=== PATIENT | male | born 1940 | race Caucasian/White ===

== ENCOUNTER 2018-03-31 16:29 | Inpatient (IN) | payer MEDICARE ==
[~2018-03-31] VITALS: Ht 177.8 cm; Wt 101.2 kg
--- NOTE | ~2018-03-31 | MORECARE ---
CASE MANAGEMENT DISCHARGE SUMMARY PATIENT: DENIS ELAINE UNIT: [id number] ADM DATE: 03/31/18 AGE: 78 : 40 SEX: M ROOM/BED: D.3757 AUTHOR: CARLTONDOC PHYSICIAN: REFERRING PHYSICIAN: LOU JACOBSEN MD DATE OF SERVICE: 04/08/18 Discharge Plan Patient Name: DENIS ELAINE Facility: [facility]:[place] : 1940 Planned Disposition: Home Anticipated Discharge Date: 04/07/18 Discharge Date: 04/07/2018 Expected LOS: 7 Initial Reviewer: [id number] Initial Review Date: 04/01/2018 Generated: 04/08/18 10:26 am Comments DCP- Discharge Planning Updated by [email or web address]: Thomas Estrada on 04/06/18 3:[address] Patient Name: DENIS ELAINE Admission Status: ER Accout number: [id number] Admission Date: 03-31-2018 : 1940 Admission Diagnosis:UNSPECIFIED ATRIAL FIBRILLATION Attending: LOU JACOBSEN Current LOS: 6 Anticipated DC Date: 04-07-2018 Planned Disposition: Home Primary Insurance: MEDICARE A & B Discharge Planning Comments: CM MET WITH PT AND SPOUSE IN ROOM TO DISCUSS DISCHARGE PLANNING AND NEEDS. DENIS ELAINE provided verbal consent to discuss current and ongoing needs with/in the presence of: SPOUSE, MAYELIN. PT REPORTS LIVING AT HOME INDEPENDENTLY WITH SPOUSE. PT HAS CANE, LIFT CHAIR, ROLLING WALKER AND WALKER FROM [place]. PT HAS NO OUTSIDE SERVICES ASSISTING IN THE HOME. CM DISCUSSED AVAILABILITY OF HOME HEALTH, REHAB SERVICES AND MEDICAL EQUIPMENT. PT DENIES DISCHARGE NEEDS, REPORTS HIS WILL PICK HIMUP FOR DISCHARGE HOME. IMPORTANT MESSAGE FROM MEDICARE PROVIDED AND EXPLAINED. PT REPORTS NOT HAVING CURRENT PRIMARY DOCTOR ALL THE DOCTORS LEFT THE [facility] IN [place], BUT THAT IS WHO PROVIDES PRESCRIPTIONS FOR MAINTENANCE MEDICATIONS. PT PLANS TO DISCHARGE HOME WITH FAMILY, DENIES DISCHARGE NEEDS AT THIS TIME. FAMILY TO TRANSPORT HOME. CM TO FOLLOW AND ASSIST IF NEEDED. Automobile Seat Cover Installer: Thomas Estrada DCPIA - Discharge Planning Initial Assessment Updated by [email or web address]: Thomas Estrada on 04/06/18 4:31 pm * Is the patient Alert and Oriented? Yes * How many steps to enter\exit or inside your home? RAMP * PCP [facility] * [facility] [place] * Preadmission Environment Home with Family * ADLs Independent * Equipment Cane Other Rolling Walker Walker * Other Equipment LIFT CHAIR [facility] [employer] [facility] * List name and contact numbers for known caregivers / representatives who currently or will assist patient after discharge: MAYELIN ELAINE, SPOUSE, * Verbal permission to speak to the caregivers and representatives has been obtained from the patient. Yes * Community resources currently utilized None * Please name any agencies selected above. NONE * Additional services required to return to the preadmission environment? No * Can the patient safely return to the preadmission environment? Yes * Has this patient been hospitalized within the prior 30 days at any hospital? No Coverage Notice Reviewer: [id number] Rodriguez Estrada Notice Issued Date-Time: 04/06/2018 16:15 Notice Type: IM Discharge Notice Notice Delivered To: Patient Relationship to Patient: Barytes Grinder Name: Delivery Method: HAND - Hand Delivered Shantell Days: Prior Verbal Notification: Recipient Understood Notice: Yes Recipient Signature: Yes Med Rec Note Co-signed by Attending: Coverage Notice Comment: Last DP export: 04/06/18 3:46 Patient Name: DENIS ELAINE Page [id number] at 0926 All edits/amendments must be made on the electronic document DICTATION DATE: 04/08/18925 ACID TENDER: DERRICK 04/08/18925 RPT#: [id number] DC DATE:04/07/18 STATUS: DIS IN [facility] [address] [place] [address] END OF REPORT
--- NOTE | ~2018-03-31 | OP ---
PATIENT NAME: DENIS ELAINE MEDICAL RECORD: [id number] :40 LOCATION:D.[place]osal[place] D.2125 ADMISSION DATE:03/31/18 SURGEON: FOREST PACHECO MD DATE OF OPERATION: 04/06/2018 PREOPERATIVE DIAGNOSES: 1. Gallstones. 2. Nonalcoholic steatohepatitis. 3. Atrial fibrillation. 4. Hypertension. 5. Diabetes mellitus. 6. Resolved small-bowel obstruction. 7. Resolved pancreatitis. POSTOPERATIVE DIAGNOSES: 1. Gallstones. 2. Nonalcoholic steatohepatitis. 3. Atrial fibrillation. 4. Hypertension. 5. Diabetes mellitus. 6. Resolved small-bowel obstruction. 7. Resolved pancreatitis. PROCEDURE: Laparoscopic cholecystectomy. SURGEON: Forest Pacheco MD REPORT OF PROCEDURE: The patient's abdomen was prepped and draped in sterile fashion. A cutdown was made on the superior aspect of the umbilicus, 0 Vicryls were placed in the fascia bilaterally and the fascia was incised with 15-blade. I then bluntly entered the peritoneal cavity and placed a 12-mm Nirali port. Under direct visualization, a 5 mm trocar was placed in the epigastrium and 2 more 5-mm trocars were placed in the right subcostal region. The gallbladder was grasped and elevated, it showed some chronic inflammatory changes with maybe some mild acute inflammation, it was difficult to grasp, so we had to aspirate the gallbladder and there was removal of some bilious fluid. At this point, we elevated the gallbladder, we were able to dissect out the cystic artery and cystic duct. This was clamped proximally and distally and ligated in standard fashion. The gallbladder was then taken off the liver bed using electrocautery and placed into an EndoCatch bag. The liver bed was treated with electrocautery to assure there is no sign of any further bleeding. At this point, the ports and insufflation were then removed and the gallbladder was taken out through the umbilicus. The umbilical fascia was closed with interrupted 0 Vicryls times 3. The wounds were then irrigated out with normal saline and infused with 10 mL of 0.25% Marcaine with epinephrine. The skin incisions were all closed with subcutaneous 5-0 Monocryl and dressed appropriately. COMPLICATIONS: None. CONDITION: Stable. ANESTHESIA: General endotracheal and local. BLOOD LOSS: 50 mL. OPERATIVE REPORT [id number] DENIS ELAINE TRANSINT:[id number] Voice Confirmation ID: [id number] DOCUMENT ID: [id number] FOREST PACHECO MD at 0916 CC: [id number] DICTATION DATE: 04/06/18 1500 REHAB THERAPY MANAGER: 04/06/18 1647 DIS IN 04/07/18 [facility] [address] [place] [id number]
--- NOTE | ~2018-03-31 | MORECARE ---
CASE MANAGEMENT DISCHARGE SUMMARY PATIENT: DENIS ELAINE UNIT: [id number] ADM DATE: 03/31/18 AGE: 78 : 40 SEX: M ROOM/BED: D.5964 AUTHOR: CARLTON,DOC PHYSICIAN: REFERRING PHYSICIAN: LOU JACOBSEN MD DATE OF SERVICE: 04/06/18 Discharge Plan Patient Name: DENIS ELAINE Facility: [facility]:[place] : 1940 Planned Disposition: Home Anticipated Discharge Date: 04/07/18 Discharge Date: Expected LOS: 7 Initial Reviewer: [id number] Initial Review Date: 04/01/2018 Generated: 04/06/18 5:46 pm Comments DCP- Discharge Planning Updated by [id number]: Thomas Estrada on 04/06/18 3:[address] Patient Name: DENIS ELAINE Admission Status: ER Accout number: [id number] Admission Date: 03-31-2018 : 1940 Admission Diagnosis:UNSPECIFIED ATRIAL FIBRILLATION Attending: LOU JACOBSEN Current LOS: 6 Anticipated DC Date: 04-07-2018 Planned Disposition: Home Primary Insurance: MEDICARE A & B Discharge Planning Comments: CM MET WITH PT AND SPOUSE IN ROOM TO DISCUSS DISCHARGE PLANNING AND NEEDS. DENIS ELAINE provided verbal consent to discuss current and ongoing needs with/in the presence of: SPOUSE, MAYELIN. PT REPORTS LIVING AT HOME INDEPENDENTLY WITH SPOUSE. PT HAS CANE, LIFT CHAIR, ROLLING WALKER AND WALKER FROM [place]. PT HAS NO OUTSIDE SERVICES ASSISTING IN THE HOME. CM DISCUSSED AVAILABILITY OF HOME HEALTH, REHAB SERVICES AND MEDICAL EQUIPMENT. PT DENIES DISCHARGE NEEDS, REPORTS HIS WILL PICK HIMUP FOR DISCHARGE HOME. IMPORTANT MESSAGE FROM MEDICARE PROVIDED AND EXPLAINED. PT REPORTS NOT HAVING CURRENT PRIMARY DOCTOR ALL THE DOCTORS LEFT THE [facility] [place], BUT THAT IS WHO PROVIDES PRESCRIPTIONS FOR MAINTENANCE MEDICATIONS. PT PLANS TO DISCHARGE HOME WITH FAMILY, DENIES DISCHARGE NEEDS AT THIS TIME. FAMILY TO TRANSPORT HOME. CM TO FOLLOW AND ASSIST IF NEEDED. Plant Operations Worker: Thomas Estrada DCPIA - Discharge Planning Initial Assessment Updated by [email or web address]: Thomas Estrada on 04/06/18 4:31 pm * Is the patient Alert and Oriented? Yes * How many steps to enter\exit or inside your home? RAMP * [facility] * [facility] [place] * Preadmission Environment Home with Family * ADLs Independent * Equipment Cane Other Rolling Walker Walker * Other Equipment LIFT CHAIR [facility] [employer] [employer] PROVID[facility] * List name and contact numbers for known caregivers / representatives who currently or will assist patient after discharge: MAYELIN ELAINE, SPOUSE, * Verbal permission to speak to the caregivers and representatives has been obtained from the patient. Yes * Community resources currently utilized None * Please name any agencies selected above. NONE * Additional services required to return to the preadmission environment? No * Can the patient safely return to the preadmission environment? Yes * Has this patient been hospitalized within the prior 30 days at any hospital? No Coverage Notice Reviewer: [id number] Rodriguez Estrada Notice Issued Date-Time: 04/06/2018 16:15 Notice Type: IM Discharge Notice Notice Delivered To: Patient Relationship to Patient: Processing Archivist Name: Delivery Method: HAND - Hand Delivered Shantell Days: Prior Verbal Notification: Recipient Understood Notice: Yes Recipient Signature: Yes Med Rec Note Co-signed by Attending: Coverage Notice Comment: Last DP export: 04/06/18 3:33 Patient Name: DENIS ELAINE Page [phone] at 1646 All edits/amendments must be made on the electronic document DICTATION DATE: 04/06/181645 INTERNET PROJECT MANAGER: DERRICK 04/06/181645 RPT#: [id number] DC DATE: STATUS: ADM IN [facility] [address] [place] [address] END OF REPORT
--- NOTE | ~2018-03-31 | MORECARE ---
CASE MANAGEMENT DISCHARGE SUMMARY PATIENT: DENIS ELAINE UNIT: [id number] ADM DATE: 03/31/18 AGE: 78 : 40 SEX: M ROOM/BED: D.0071 AUTHOR: TANIA VINCENT PHYSICIAN: REFERRING PHYSICIAN: LOU JACOBSEN MD DATE OF SERVICE: 04/06/18 Discharge Plan Patient Name: DENIS ELAINE Facility: [facility]:[place] : 1940 Planned Disposition: Home Anticipated Discharge Date: 04/07/18 Discharge Date: Expected LOS: 7 Initial Reviewer: [id number] Initial Review Date: 04/01/2018 Generated: 04/06/18 5:33 pm DCPIA - Discharge Planning Initial Assessment Updated by [id number]: Thomas Estrada on 04/06/18 4:31 pm * Is the patient Alert and Oriented? Yes * How many steps to enter\exit or inside your home? RAMP * PCP [facility] * [facility] [place] * Preadmission Environment Home with Family * ADLs Independent * Equipment Cane Other Rolling Walker Walker * Other Equipment LIFT CHAIR [place] [employer]QUIPMENT PROVIDER * List name and contact numbers for known caregivers / representatives who currently or will assist patient after discharge: MAYELIN ELAINE, SPOUSE, * Verbal permission to speak to the caregivers and representatives has been obtained from the patient. Yes * Community resources currently utilized None * Please name any agencies selected above. NONE * Additional services required to return to the preadmission environment? No * Can the patient safely return to the preadmission environment? Yes * Has this patient been hospitalized within the prior 30 days at any hospital? No Coverage Notice Reviewer: [id number] - Thomas Estrada Notice Issued Date-Time: 04/06/2018 16:15 Notice Type: IM Discharge Notice Notice Delivered To: Patient Relationship to Patient: Post Office Clerk Name: Delivery Method: HAND - Hand Delivered Shantell Days: Prior Verbal Notification: Recipient Understood Notice: Yes Recipient Signature: Yes Med Rec Note Co-signed by Attending: Coverage Notice Comment: Patient Name: DENIS ELAINE Page [phone] at 1633 All edits/amendments must be made on the electronic document DICTATION DATE: 04/06/181632 SPECIALTIES OPERATOR: DERRICK 04/06/181632 RPT#: [id number] [place] DATE: STATUS: ADM IN [facility] [address] [place] [address] END OF REPORT
--- NOTE | ~2018-03-31 | EC ---
PATIENT:DENIS ELAINE DATE OF SERVICE: 03/31/18 SEX: M MEDICAL RECORD: [id number] DATE OF : 40 LOCATION:D. D.212 AGE OF PATIENT: 78 ADMISSION DATE: 03/31/18 REFERRING PHYSICIAN: INTERPRETING PHYSICIAN: PEACE BOONE MD ECHOCARDIOGRAM REPORT ECHO CHARGES 4 ECHO COMPLETE Date: 04/01/18 CLINICAL DIAGNOSIS: AFIB ECHOCARDIOGRAPHIC MEASUREMENTS (adult normal given) AC root (d.<3.7cm) 3.4 cm LV Septum d (<1.2 cm> 1.1 cm Valve Excursion 1.1 cm LV Septum (systole) 1.2 cm Left Atria (s.<4.0cm> 4.1 cm LVPW d(<1.2cm) 1.0 cm RV (d.<2.3cm) 2.1 cm LVPW (sytole) 1.5 cm LV diastole(<5.6CM) 4.2 cm MV E-F(>70mm/sec) cm LV systole 3.3 cm LVOT Diameter 1.6 cm MV exc.(>10mm) cm Est.ejection fraction (50-75%) % DOPPLER: LVIT cm/sec A 38 cm/sec E 76 cm/sec LA cm/sec RVSP 17.9 mmHg LVOT 106 cm/sec AOP1/2T m/s Asc. Ao 167 cm/sec RVOT 94 cm/sec RA cm/sec PA 99 cm/sec AV Gradient Peak 11.2 mmHg AV Mean 6.4 mmHg AV Area 1.3 cm MV Gradient Peak 3.7 mmHg MV Mean 2.0 mmHg MV Area cm COMMENTS: Pipefitter: Erickson HART On Site Nurse: 1 Dr. Boone TAPE# PACS Pericardial Effusion N DATE OF SERVICE: 04/01/2018 FINDINGS: 1. Left ventricular chamber size is within normal limits. Left ventricular systolic function is normal. Overall ejection fraction is estimated at 60%. 2. Left atrium is mildly dilated at 4.1 cm. Right atrium and right ventricle chamber sizes are within normal limit. 3. Valvular structures have normal structure and motion. 4. Doppler interrogation only reveals trace tricuspid regurgitation. No other valvular insufficiency or stenosis. ECHOCARDIOGRAM REPORT [id number] DENIS ELAINE Taylor 5. No evidence of pericardial effusion or left ventricular thrombus. TRANSINT:[id number] Voice Confirmation ID: [id number] DOCUMENT ID: [id number] PEACE BOONE MD at 1914 CC: [id number] DICTATION DATE: 04/01/18 1630 VICE PRESIDENT AND PORTFOLIO MANAGER: 04/01/18 1806 ADM IN [facility] [address] [place] [address]
[2018-03-31 17:01] LABS: BASOPHILS 0.3 % (0-2); EOSINOPHILS 1.4 % (0-7); HEMATOCRIT 49.2 % (42.0-54.0); HEMOGLOBIN 17.6 g/dL (13.5-17.5); IMMATURE GRANULOCYTES 0.3 % (0-5); MCH 32.4 pg (26.0-34.0); MCHC 35.8 g/dL (31.0-37.0); MCV 90.6 fL (80.0-100.0); MEAN PLATELET VOLUME 13.8 fL (7.4-10.4); MONOCYTES 11.8 % (2-11); NEUTROPHILS 70.2 % (40-80); RBC 5.43 10x6/uL (4.20-6.10); RDW 13.4 % (11.5-14.5)
[2018-03-31 17:24] LABS: PLATELET COUNT 168 10x3/uL (130-400)
[2018-03-31 17:40] LABS: ALBUMIN 3.4 g/dL (3.4-5.0); ALKALINE PHOSPHATASE 77 U/L (46-116); ALT (SGPT) 36 U/L (10-68); AMYLASE - SERUM 81 U/L (25-115); BILIRUBIN - TOTAL 1.13 mg/dL (0.2-1.3); CALCIUM 9.9 mg/dL (8.5-10.1); CARBON DIOXIDE 30.7 mmol/L (21.0-32.0); CHLORIDE - SERUM 91 mmol/L (98-107); CREATININE - SERUM 1.4 mg/dL (0.6-1.3); LIPASE 543 U/L (73-393); POTASSIUM - SERUM 4.6 mmol/L (3.5-5.1); PROTEIN - SERUM 8.1 g/dL (6.4-8.2); SODIUM 132 mmol/L (136-145); UREA NITROGEN 51 mg/dL (7-18); eGFR NON AFRICAN AMERICAN 52 mL/min (90-120)
[2018-03-31 17:42] LABS: CALC OSMOLALITY 298 mosm/kg (275-300); GLUCOSE 460 mg/dL (74-106); TROPONIN-I < 0.017 ng/mL (0.000-0.060)
[2018-03-31 18:52] LABS: APPEARANCE CLEAR (CLEAR); COLOR YELLOW (YELLOW); GLUCOSE 1000 mg/dL (NEGATIVE); NITRITE NEGATIVE (NEGATIVE); PROTEIN TRACE mg/dL (NEGATIVE); SPECIFIC GRAVITY 1.015 (1.005-1.020)
[2018-03-31 18:53] LABS: BILIRUBIN NEGATIVE (NEGATIVE); KETONE SMALL mg/dL (NEGATIVE); UROBILINOGEN NORMAL (NORMAL)
[2018-03-31 19:15] VITALS: BP 147/77
[2018-03-31 20:30] VITALS: BP 149/70
[2018-03-31 20:45] VITALS: BP 142/65
[2018-03-31 21:30] VITALS: BP 146/62
[2018-03-31 22:10] VITALS: BP 133/51
[2018-03-31 23:16] VITALS: BP 125/46
[2018-04-01] MEDS ORDERED: CO Q-10100 MG PO (00:05)
[2018-04-01] MEDS ORDERED: ONGLYZA5 MG PO (00:05)
[2018-04-01] MEDS ORDERED: FLAXSEED OIL1000 MG PO (00:07)
[2018-04-01] MEDS ORDERED: REMERON15 MG PO (00:08)
[2018-04-01] MEDS ORDERED: VITAMIN B-6100 MG PO (00:09)
[2018-04-01] MEDS ORDERED: VITAMIN B-12100 MCG PO (00:09)
[2018-04-01] MEDS ORDERED: FLOMAX0.4 MG PO (00:23)
[2018-04-01 01:10] VITALS: BP 138/61
[2018-04-01 06:06] VITALS: BP 131/55
[2018-04-01 06:52] LABS: BASOPHILS 0.4 % (0-2); EOSINOPHILS 2.6 % (0-7); HEMATOCRIT 41.5 % (42.0-54.0); HEMOGLOBIN 14.5 g/dL (13.5-17.5); IMMATURE GRANULOCYTES 0.1 % (0-5); LYMPHOCYTES 23.3 % (15-50); MCH 31.7 pg (26.0-34.0); MCHC 34.9 g/dL (31.0-37.0); MCV 90.8 fL (80.0-100.0); MEAN PLATELET VOLUME 13.5 fL (7.4-10.4); MONOCYTES 12.4 % (2-11); NEUTROPHILS 61.2 % (40-80); RBC 4.57 10x6/uL (4.20-6.10); RDW 13.4 % (11.5-14.5)
[2018-04-01 06:54] LABS: PLATELET COUNT 117 10x3/uL (130-400)
[2018-04-01 07:26] LABS: ALKALINE PHOSPHATASE 54 U/L (46-116); BILIRUBIN - TOTAL 0.75 mg/dL (0.2-1.3); CALCIUM 8.3 mg/dL (8.5-10.1); CARBON DIOXIDE 29.7 mmol/L (21.0-32.0); CHLORIDE - SERUM 101 mmol/L (98-107); SODIUM 137 mmol/L (136-145)
[2018-04-01 07:52] LABS: ALBUMIN 2.4 g/dL (3.4-5.0); ALT (SGPT) 26 U/L (10-68); CALC OSMOLALITY 291 mosm/kg (275-300); GLUCOSE 286 mg/dL (74-106); POTASSIUM - SERUM 3.8 mmol/L (3.5-5.1); UREA NITROGEN 36 mg/dL (7-18); eGFR NON AFRICAN AMERICAN 77 mL/min (90-120)
[2018-04-01 08:14] VITALS: BP 140/56
[2018-04-01 11:52] VITALS: BP 146/53
[2018-04-01 13:29] VITALS: BMI 28.9
[2018-04-01 15:03] VITALS: BP 145/58
[2018-04-01 16:45] LABS: ALBUMIN 2.6 g/dL (3.4-5.0); BILIRUBIN - DIRECT 0.31 mg/dL (0.00-0.30); BILIRUBIN - INDIRECT 0.54 mg/dL (0.00-1.00); BILIRUBIN - TOTAL 0.85 mg/dL (0.2-1.3); PROTEIN - SERUM 6.4 g/dL (6.4-8.2)
[2018-04-01 18:37] LABS: LIPASE 137 U/L (73-393)
[2018-04-01 18:39] LABS: AMYLASE - SERUM 31 U/L (25-115)
[2018-04-01 20:00] VITALS: BP 136/56
[2018-04-02] VITALS: BP 138/48
[2018-04-02 05:40] LABS: BASOPHILS 0.3 % (0-2); HEMOGLOBIN 13.3 g/dL (13.5-17.5); IMMATURE GRANULOCYTES 0.1 % (0-5); MCH 31.6 pg (26.0-34.0); MCV 90.3 fL (80.0-100.0); MEAN PLATELET VOLUME 13.1 fL (7.4-10.4); MONOCYTES 14.6 % (2-11); PLATELET COUNT 112 10x3/uL (130-400); RBC 4.21 10x6/uL (4.20-6.10); RDW 13.4 % (11.5-14.5); WBC 7.1 10x3/uL (4.8-10.8)
[2018-04-02 05:57] VITALS: BP 120/57
[2018-04-02 06:10] LABS: ALBUMIN 2.2 g/dL (3.4-5.0); ALKALINE PHOSPHATASE 52 U/L (46-116); ALT (SGPT) 26 U/L (10-68); BILIRUBIN - TOTAL 0.85 mg/dL (0.2-1.3); CALCIUM 7.8 mg/dL (8.5-10.1); CARBON DIOXIDE 28.9 mmol/L (21.0-32.0); CHLORIDE - SERUM 103 mmol/L (98-107); CREATININE - SERUM 0.8 mg/dL (0.6-1.3); LIPASE 123 U/L (73-393); MAGNESIUM - SERUM 1.7 mg/dL (1.8-2.4); PROTEIN - SERUM 5.4 g/dL (6.4-8.2); SODIUM 139 mmol/L (136-145); eGFR NON AFRICAN AMERICAN > 90 mL/min (90-120)
[2018-04-02 06:20] LABS: CALC OSMOLALITY 283 mosm/kg (275-300); GLUCOSE 165 mg/dL (74-106); POTASSIUM - SERUM 3.9 mmol/L (3.5-5.1); UREA NITROGEN 19 mg/dL (7-18)
[2018-04-02 07:48] VITALS: BP 142/60
[2018-04-02 15:15] VITALS: BP 162/66
[2018-04-02 20:49] VITALS: BP 153/63
[2018-04-03 01:18] VITALS: BP 168/63
[2018-04-03 06:09] LABS: HEMATOCRIT 38.3 % (42.0-54.0); HEMOGLOBIN 13.3 g/dL (13.5-17.5); LYMPHOCYTES 34.9 % (15-50); MCH 31.2 pg (26.0-34.0); MCHC 34.7 g/dL (31.0-37.0); MCV 89.9 fL (80.0-100.0); NEUTROPHILS 49.9 % (40-80); PLATELET COUNT 116 10x3/uL (130-400); RBC 4.26 10x6/uL (4.20-6.10); RDW 13.9 % (11.5-14.5); WBC 5.7 10x3/uL (4.8-10.8)
[2018-04-03 06:15] VITALS: BP 144/51
[2018-04-03 06:16] LABS: APTT 32.5 SECONDS (22.8-39.4); INR 1.14 (0.85-1.17); PROTIME 14.2 SECONDS (11.6-15.0)
[2018-04-03 06:32] LABS: ALBUMIN 2.2 g/dL (3.4-5.0); ALKALINE PHOSPHATASE 53 U/L (46-116); ALT (SGPT) 24 U/L (10-68); BILIRUBIN - TOTAL 0.59 mg/dL (0.2-1.3); CALC OSMOLALITY 283 mosm/kg (275-300); CALCIUM 8.5 mg/dL (8.5-10.1); CARBON DIOXIDE 27.2 mmol/L (21.0-32.0); CHLORIDE - SERUM 103 mmol/L (98-107); CREATININE - SERUM 0.9 mg/dL (0.6-1.3); GLUCOSE 175 mg/dL (74-106); POTASSIUM - SERUM 3.3 mmol/L (3.5-5.1); PROTEIN - SERUM 5.9 g/dL (6.4-8.2); SODIUM 140 mmol/L (136-145); UREA NITROGEN 14 mg/dL (7-18); eGFR NON AFRICAN AMERICAN 87 mL/min (90-120)
[2018-04-03 08:27] VITALS: BP 166/58
[2018-04-03 20:00] VITALS: BP 185/74
[2018-04-04] VITALS: BP 171/56
[2018-04-04 04:00] VITALS: BP 158/65
[2018-04-04 04:24] VITALS: BP 171/56; Ht 177.8 cm; Wt 101.2 kg
[2018-04-04 04:51] LABS: BASOPHILS 0.5 % (0-2); EOSINOPHILS 1.4 % (0-7); HEMATOCRIT 40.1 % (42.0-54.0); HEMOGLOBIN 14.3 g/dL (13.5-17.5); IMMATURE GRANULOCYTES 0.9 % (0-5); LYMPHOCYTES 24.2 % (15-50); MCH 31.7 pg (26.0-34.0); MCHC 35.7 g/dL (31.0-37.0); MCV 88.9 fL (80.0-100.0); MONOCYTES 12.8 % (2-11); NEUTROPHILS 60.2 % (40-80); RBC 4.51 10x6/uL (4.20-6.10); RDW 13.5 % (11.5-14.5); WBC 6.5 10x3/uL (4.8-10.8)
[2018-04-04 04:52] LABS: PLATELET COUNT 141 10x3/uL (130-400)
[2018-04-04 05:13] LABS: ALBUMIN 2.3 g/dL (3.4-5.0); ALKALINE PHOSPHATASE 62 U/L (46-116); ALT (SGPT) 27 U/L (10-68); BILIRUBIN - TOTAL 0.46 mg/dL (0.2-1.3); CALCIUM 8.5 mg/dL (8.5-10.1); CARBON DIOXIDE 25.7 mmol/L (21.0-32.0); CHLORIDE - SERUM 104 mmol/L (98-107); CREATININE - SERUM 0.8 mg/dL (0.6-1.3); GLUCOSE 161 mg/dL (74-106); POTASSIUM - SERUM 3.2 mmol/L (3.5-5.1); PROTEIN - SERUM 6.1 g/dL (6.4-8.2); SODIUM 139 mmol/L (136-145); eGFR NON AFRICAN AMERICAN > 90 mL/min (90-120)
[2018-04-04 05:18] LABS: CALC OSMOLALITY 279 mosm/kg (275-300); UREA NITROGEN 9 mg/dL (7-18)
[2018-04-04 08:00] VITALS: BP 158/57
[2018-04-04 13:05] VITALS: BP 164/93
[2018-04-04 21:06] VITALS: BP 144/51
[2018-04-05 01:00] VITALS: BP 137/60
[2018-04-05 05:14] LABS: BASOPHILS 0.4 % (0-2); EOSINOPHILS 1.6 % (0-7); HEMATOCRIT 34.3 % (42.0-54.0); HEMOGLOBIN 12.2 g/dL (13.5-17.5); IMMATURE GRANULOCYTES 1.2 % (0-5); LYMPHOCYTES 25.6 % (15-50); MCH 31.7 pg (26.0-34.0); MCHC 35.6 g/dL (31.0-37.0); MCV 89.1 fL (80.0-100.0); MEAN PLATELET VOLUME 12.8 fL (7.4-10.4); MONOCYTES 14.4 % (2-11); NEUTROPHILS 56.8 % (40-80); PLATELET COUNT 129 10x3/uL (130-400); RBC 3.85 10x6/uL (4.20-6.10); RDW 13.6 % (11.5-14.5); WBC 6.7 10x3/uL (4.8-10.8)
[2018-04-05 05:31] LABS: ALKALINE PHOSPHATASE 54 U/L (46-116); ALT (SGPT) 28 U/L (10-68); BILIRUBIN - TOTAL 0.37 mg/dL (0.2-1.3); CALC OSMOLALITY 281 mosm/kg (275-300); CALCIUM 7.8 mg/dL (8.5-10.1); CHLORIDE - SERUM 105 mmol/L (98-107); CREATININE - SERUM 0.8 mg/dL (0.6-1.3); GLUCOSE 205 mg/dL (74-106); POTASSIUM - SERUM 3.6 mmol/L (3.5-5.1); PROTEIN - SERUM 5.5 g/dL (6.4-8.2); SODIUM 139 mmol/L (136-145); eGFR NON AFRICAN AMERICAN > 90 mL/min (90-120)
[2018-04-05 05:32] LABS: UREA NITROGEN 6 mg/dL (7-18)
[2018-04-05 06:12] VITALS: BP 130/40
[2018-04-05 07:53] VITALS: BP 153/57
[2018-04-05 12:02] VITALS: BP 178/66
[2018-04-05 15:35] VITALS: BP 146/76
[2018-04-05 20:21] VITALS: BP 144/52
[2018-04-06 01:24] VITALS: BP 157/51
[2018-04-06 05:36] VITALS: BP 159/49
[2018-04-06 06:04] LABS: BASOPHILS 0.8 % (0-2); HEMATOCRIT 33.5 % (42.0-54.0); HEMOGLOBIN 11.8 g/dL (13.5-17.5); IMMATURE GRANULOCYTES 0.8 % (0-5); LYMPHOCYTES 33.9 % (15-50); MCH 31.1 pg (26.0-34.0); MCHC 35.2 g/dL (31.0-37.0); MCV 88.2 fL (80.0-100.0); MEAN PLATELET VOLUME 12.4 fL (7.4-10.4); MONOCYTES 15.5 % (2-11); PLATELET COUNT 143 10x3/uL (130-400); RDW 13.8 % (11.5-14.5); WBC 6.1 10x3/uL (4.8-10.8)
[2018-04-06 06:26] LABS: ALBUMIN 1.9 g/dL (3.4-5.0); ALKALINE PHOSPHATASE 51 U/L (46-116); ALT (SGPT) 22 U/L (10-68); BILIRUBIN - TOTAL 0.38 mg/dL (0.2-1.3); CALC OSMOLALITY 284 mosm/kg (275-300); CALCIUM 7.4 mg/dL (8.5-10.1); CHLORIDE - SERUM 107 mmol/L (98-107); CREATININE - SERUM 0.8 mg/dL (0.6-1.3); GLUCOSE 190 mg/dL (74-106); POTASSIUM - SERUM 3.1 mmol/L (3.5-5.1); PROTEIN - SERUM 5.4 g/dL (6.4-8.2); SODIUM 142 mmol/L (136-145); UREA NITROGEN 5 mg/dL (7-18); eGFR NON AFRICAN AMERICAN > 90 mL/min (90-120)
[2018-04-06 08:15] VITALS: BP 159/62
[2018-04-06 15:52] VITALS: BP 146/50
[2018-04-06 20:27] VITALS: BP 167/66
[2018-04-07] VITALS: BP 159/62
[2018-04-07 05:57] VITALS: BP 141/45
[2018-04-07 11:47] VITALS: BP 190/70
[2018-04-07 11:50] LABS: BASOPHILS 0.1 % (0-2); EOSINOPHILS 0 % (0-7); HEMATOCRIT 36.2 % (42.0-54.0); HEMOGLOBIN 13.1 g/dL (13.5-17.5); IMMATURE GRANULOCYTES 0.4 % (0-5); LYMPHOCYTES 8.3 % (15-50); MCH 31.7 pg (26.0-34.0); MCHC 36.2 g/dL (31.0-37.0); MCV 87.7 fL (80.0-100.0); MEAN PLATELET VOLUME 11.5 fL (7.4-10.4); MONOCYTES 11.6 % (2-11); NEUTROPHILS 79.6 % (40-80); RBC 4.13 10x6/uL (4.20-6.10); RDW 13.7 % (11.5-14.5)
[2018-04-07 11:52] LABS: PLATELET COUNT 190 10x3/uL (130-400); WBC 15.8 10x3/uL (4.8-10.8)
[2018-04-07 12:04] LABS: ALBUMIN 2.3 g/dL (3.4-5.0); ALKALINE PHOSPHATASE 64 U/L (46-116); BILIRUBIN - TOTAL 0.49 mg/dL (0.2-1.3); CALCIUM 8.4 mg/dL (8.5-10.1); CARBON DIOXIDE 26.3 mmol/L (21.0-32.0); CHLORIDE - SERUM 102 mmol/L (98-107); CREATININE - SERUM 0.8 mg/dL (0.6-1.3); MAGNESIUM - SERUM 1.6 mg/dL (1.8-2.4); PROTEIN - SERUM 6.4 g/dL (6.4-8.2); SODIUM 138 mmol/L (136-145); eGFR NON AFRICAN AMERICAN > 90 mL/min (90-120)
[2018-04-07 12:07] LABS: ALT (SGPT) 72 U/L (10-68); CALC OSMOLALITY 282 mosm/kg (275-300); GLUCOSE 256 mg/dL (74-106); POTASSIUM - SERUM 3.9 mmol/L (3.5-5.1); UREA NITROGEN 7 mg/dL (7-18)
[2018-04-07 16:04] VITALS: BP 167/60
[2018-04-07] MEDS ORDERED: CARDIZEM60 MG PO (16:54)
[2018-04-07] MEDS ORDERED: FLOMAX0.4 MG PO ×2 (17:10→17:12)
[2018-04-07] MEDS ORDERED: ZOFRAN4 MG PO (17:10)
[2018-04-07 21:30] VITALS: BP 156/57
== END 2018-04-07 21:50 | disposition home or self-care (01) | DRG 417 ==
LOC: D.ER 16:29 → D.M2 22:38
PROVIDERS: Emergency Medicine; Family Medicine; Internal Medicine Nephrology; Surgery
PROC: 0FT44ZZ Resection of Gallbladder, Percutaneous Endoscopic Approach (ICD-10-PCS; principal; 2018-04-06 12:00)
DX: K80.80 Other cholelithiasis without obstruction (principal); K85.90 Acute pancreatitis without necrosis or infection, unspecified; N17.9 Acute kidney failure, unspecified; K56.7 Ileus, unspecified; I48.91 Unspecified atrial fibrillation; Z87.891 Personal history of nicotine dependence; E11.9 Type 2 diabetes mellitus without complications; N40.0 Benign prostatic hyperplasia without lower urinary tract symptoms; K75.81 Nonalcoholic steatohepatitis (NASH); I10 Essential (primary) hypertension

== ENCOUNTER 2018-08-06 13:45 | Emergency (ER) | payer MEDICARE ==
[~2018-08-06] VITALS: Ht 177.8 cm; Wt 95.5 kg
[~2018-08-06 13:45] MED LIST: CARDIZEM60 MG PO; CO Q-10100 MG PO; FLAXSEED OIL1000 MG PO; FLOMAX0.4 MG PO; ONGLYZA5 MG PO; REMERON15 MG PO; VITAMIN B-12100 MCG PO; VITAMIN B-6100 MG PO; ZOFRAN4 MG PO
[2018-08-06 14:01] VITALS: Ht 177.8 cm; Wt 95.5 kg
[2018-08-06 14:35] LABS: BASOPHILS 0.2 % (0-2); EOSINOPHILS 0.1 % (0-7); HEMATOCRIT 43.5 % (42.0-54.0); HEMOGLOBIN 15.3 g/dL (13.5-17.5); IMMATURE GRANULOCYTES 0.2 % (0-5); LYMPHOCYTES 17.8 % (15-50); MCH 30.3 pg (26.0-34.0); MCHC 35.2 g/dL (31.0-37.0); MCV 86.1 fL (80.0-100.0); MEAN PLATELET VOLUME 12.7 fL (7.4-10.4); MONOCYTES 6.7 % (2-11); PLATELET COUNT 156 10x3/uL (130-400); RBC 5.05 10x6/uL (4.20-6.10); RDW 14.1 % (11.5-14.5)
[2018-08-06 14:51] LABS: ALBUMIN 3.4 g/dL (3.4-5.0); ALKALINE PHOSPHATASE 85 U/L (46-116); ALT (SGPT) 39 U/L (10-68); BILIRUBIN - TOTAL 0.44 mg/dL (0.2-1.3); CALCIUM 9.3 mg/dL (8.5-10.1); CHLORIDE - SERUM 96 mmol/L (98-107); CREATININE - SERUM 1.7 mg/dL (0.6-1.3); POTASSIUM - SERUM 4.9 mmol/L (3.5-5.1); PROTEIN - SERUM 8.3 g/dL (6.4-8.2); SODIUM 134 mmol/L (136-145); UREA NITROGEN 30 mg/dL (7-18); eGFR NON AFRICAN AMERICAN 42 mL/min (90-120)
[2018-08-06 14:54] LABS: AMYLASE - SERUM 79 U/L (25-115); LIPASE 259 U/L (73-393)
[2018-08-06 15:04] LABS: CALC OSMOLALITY 289 mosm/kg (275-300); GLUCOSE 394 mg/dL (74-106); TROPONIN-I < 0.017 ng/mL (0.000-0.060)
[2018-08-06 15:10] LABS: APPEARANCE HAZY (CLEAR); BACTERIA FEW /hpf (NONE SEEN); BILIRUBIN NEGATIVE (NEGATIVE); COLOR YELLOW (YELLOW); EPITHELIAL CELLS 0-5 /hpf (0-5); GLUCOSE 1000 mg/dL (NEGATIVE); HYALINE CAST 0-5 /lpf (NONE SEEN); KETONE MODERATE mg/dL (NEGATIVE); MUCUS >1+ /lpf (NONE SEEN); NITRITE NEGATIVE (NEGATIVE); PROTEIN 1+ mg/dL (NEGATIVE); RED CELLS - URINE OCC /hpf (0-5); UROBILINOGEN NORMAL (NORMAL); WHITE CELLS - URINE 0-5 /hpf (0-5)
[2018-08-06] MEDS ORDERED: FLAGYL500 MG PO (19:10)
[2018-08-06] MEDS ORDERED: ZOFRAN8 MG PO (19:10)
[2018-08-06] MEDS ORDERED: ACIDOPHILUS-PE1 EACH PO (19:11)
[2018-08-06 19:31] VITALS: BP 112/35
== END 2018-08-06 19:56 | disposition home or self-care (01) ==
LOC: D.ER 13:45
PROVIDERS: Family Medicine
DX: R11.2 Nausea with vomiting, unspecified (principal); R10.32 Left lower quadrant pain; E86.0 Dehydration; E11.9 Type 2 diabetes mellitus without complications; R19.7 Diarrhea, unspecified; I48.91 Unspecified atrial fibrillation